=== PATIENT | male | born 1955 | race Caucasian/White ===

== ENCOUNTER 2020-06-12 04:09 | Emergency (ER) | payer OTHER ==
--- NOTE | 2020-06-12 04:30 | EDM.PDOC ---
ED HPI GENERAL MEDICAL PROBLEM - General Chief Complaint: Chest Pain Stated Complaint: [facility] Time Seen by Provider: 06/12/20 04:15 Source of Information: Reports: Patient History Limitations: Reports: No Limitations - History of Present Illness INITIAL COMMENTS - FREE TEXT/NARRATIVE: This is a 65-year-old male. He apparently was in bed and awoke and he felt like he was having palpitations and tightness in his chest. He did not have any sweating there was no shortness of breath there was no pain or pressure into his neck jaw or down his arm. He got up to go to the bathroom and felt lightheaded but did not pass out. He let himself down on the floor gently and then he called 911. When the ambulance arrived to pick them up the palpitations stopped even though he tells me he still feels like he is got some palpitations now with a heart rate of 73. He has not been around anyone with Covid he is not really been experiencing any Covid symptoms. He did drink a glass of water that tasted really better around 730. He has had some nausea though he has not vomited during this episode of palpitations and chest tightness. The ambulance he got 3 nitroglycerin and 324 aspirin. He did take an ibuprofen at 11 PM and at 2 AM because of his low back aching. He does have a herniated disc in his L4 low back. He denies cough congestion fever chills. He is not having any particular symptoms presently. 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: Reports: Aspirin, Intubation, Nitroglycerin - Related Data Allergies Allergy/AdvReac Type Severity Reaction Status Date / Time Sulfa (Sulfonamide Allergy Rash Verified 05/06/20 10:14 Antibiotics) Home Meds: Home Meds Azithromycin 250 mg PO QAM #6 tablet 06/12/20 [Rx] Past Medical History Cardiovascular History: Reports: High Cholesterol, Hypertension Social & Family History - Tobacco Use Tobacco Use Status *Q: Former Tobacco User Used Tobacco, but Quit: Yes Month/Year Tobacco Last Used: 1999 - Alcohol Use Days Per Week of Alcohol Use: 1 Number of Drinks Per Day: 1 Total Drinks Per Week: 1 - Recreational Drug Use Recreational Drug Use: No ED ROS GENERAL - Review of Systems Review Of Systems: See Below Constitutional: Denies: Fever, Chills, Weakness HEENT: Denies: Sinus Problem, Throat Pain Respiratory: Denies: Shortness of Breath, Cough Cardiovascular: Reports: Chest Pain, Palpitations Endocrine: Reports: No Symptoms GI/Abdominal: Reports: No Symptoms, Nausea. Denies: Abdominal Pain, Diarrhea, Vomiting : Reports: No Symptoms Musculoskeletal: Reports: Back Pain Skin: Reports: No Symptoms Neurological: Reports: No Symptoms Psychiatric: Reports: No Symptoms Hematologic/Lymphatic: Reports: No Symptoms ED EXAM, GENERAL - Physical Exam Exam: See Below Exam Limited By: No Limitations General Appearance: Alert, WD/WN, No Apparent Distress Eye Exam: Bilateral Eye: Normal Inspection Ears: Normal External Exam, Normal Canal, Normal TMs Nose: Normal Inspection Throat/Mouth: Normal Inspection, Normal Lips, Normal Oropharynx, Normal Voice, No Airway Compromise, Other (Tacky mucous membranes) Head: Normocephalic Neck: Supple Respiratory/Chest: No Respiratory Distress, Lungs Clear, Normal Breath Sounds Cardiovascular: Regular Rate, Rhythm, No Murmur GI/Abdominal: Soft, Non-Tender Back Exam: Normal Inspection, Full Range of Motion Extremities: Normal Inspection, Normal Range of Motion, No Pedal Edema Neurological: Alert, Oriented Psychiatric: Normal Affect, Normal Mood Skin Exam: Warm, Dry #1 Interpretation EKG Date: 06/12/20 Time: 04:15 EKG Interpretation Comments: EKG shows a normal sinus rhythm with a rate of 81. He has no acute ST elevation or T wave changes. He has no ischemia noted. Course - Vital Signs Last Recorded V/S: Last Vital Signs Temp 97 F 06/12/20 04:13 Pulse 76 06/12/20 04:13 Resp 16 06/12/20 04:13 BP 142/92 H 06/12/20 04:13 Pulse Ox 98 06/12/20 04:13 - Orders/Labs/Meds Orders: Active Orders 24 hr Category Date Time Status EKG 12 Lead [EKG Documentation Completion] [RC] STAT Care 06/12/20 04:22 Active CXR [Chest 1V Frontal] [CR] Stat Exams 06/12/20 04:28 Taken Labs: Laboratory Tests 06/12/20 06/12/20 06/12/20 Range/Units 04:38 04:38 06:16 WBC 8.07 (4.23-9.07) K/mm3 RBC 5.02 (4.63-6.08) M/mm3 Hgb 14.3 (13.7-17.5) gm/dl Hct 41.6 (40.1-51.0) % MCV 82.9 (79.0-92.2) fl MCH 28.5 (25.7-32.2) pg MCHC 34.4 (32.2-35.5) g/dl RDW Std Deviation 41.4 (35.1-43.9) fL Plt Count 177 (163-337) K/mm3 MPV 9.5 (9.4-12.3) fl Neut % (Auto) 49.1 (34.0-67.9) % Lymph % (Auto) 39.2 (21.8-53.1) % [place] % (Auto) 9.5 (5.3-12.2) % Eos % (Auto) 2.0 (0.8-7.0) Baso % (Auto) 0.1 (0.1-1.2) % Neut # (Auto) 3.96 (1.78-5.38) K/mm3 Lymph # (Auto) 3.16 (1.32-3.57) K/mm3 [place] # (Auto) 0.77 (0.30-0.82) K/mm3 Eos # (Auto) 0.16 (0.04-0.54) K/mm3 Baso # (Auto) 0.01 (0.01-0.08) K/mm3 Sodium 136 (136-145) mEq/L Potassium 3.3 L (3.5-5.1) mEq/L Chloride 102 (98-107) mEq/L Carbon Dioxide 26 (21-32) mEq/L Anion Gap 11.3 (5-15) BUN 17 (7-18) mg/dL Creatinine 1.3 (0.7-1.3) mg/dL Est Cr Clr Drug Dosing 53.67 mL/min Estimated GFR (MDRD) 56 (>60) mL/min BUN/Creatinine Ratio 13.1 L (14-18) Glucose 127 H (80-115) mg/dL Calcium 8.8 (8.5-10.1) mg/dL Total Bilirubin 0.7 (0.2-1.0) mg/dL AST 21 (15-37) U/L ALT 21 (16-63) U/L Alkaline Phosphatase 104 (46-116) U/L Troponin I < 0.017 < 0.017 (0.00-0.056) ng/mL Total Protein 7.1 (6.4-8.2) g/dl Albumin 3.5 (3.4-5.0) g/dl Globulin 3.6 gm/dL Albumin/Globulin Ratio 1.0 (1-2) - Radiology Interpretation Free Text/Narrative:: Chest x-ray by the radiologist suggest he might have some interstitial edema or vascular congestion however it does appear to have maybe a early infiltrate in the right lower lobe. - Re-Assessments/Exams Free Text/Narrative Re-Assessment/Exam: 06/12/20 06:54 02 the patient regarding his lab results. Both of his troponins were negative. I think he might have an early pneumonia in the right lower base but from his symptomology and presentation it certainly could be mycoplasma I will place him on some antibiotics at this time. Departure - Departure Time of Disposition: 06:55 Disposition: Home, Self-Care 01 Condition: Good Clinical Impression: Palpitations, Pulmonary congestion Mycoplasma pneumonia Qualifiers: Laterality: right Lung location: lower lobe of lung Qualified Code(s): J15.7 - Pneumonia due to Mycoplasma pneumoniae Prescriptions: Azithromycin 250 mg PO QAM #6 tablet Instructions: Palpitations, Ofnu-he-Alna, Community-Acquired Pneumonia, Adult, [id number] Referrals: Yumiko Spencer MD [Primary Care Provider] - Forms: ED Department Discharge, ED Return to Work/School Form Additional Instructions: Continue with light activity, start your antibiotics today if you can, drink lots of fluids, follow-up with your family doctor later this week for recheck and return to the ER if needed Sepsis Event Note (ED) - Evaluation Sepsis Screening Result: No Definite Risk - Focused Exam Vital Signs: Vital Signs Temp Pulse Resp BP Pulse Ox 06/12/20 04:13 97 F 76 16 142/92 H 98 - My Orders Last 24 Hours: My Active Orders 06/12/20 04:22 EKG 12 Lead [EKG Documentation Completion] [RC] STAT 06/12/20 04:28 CXR [Chest 1V Frontal] [CR] Stat - Assessment/Plan Last 24 Hours: My Active Orders 06/12/20 04:22 EKG 12 Lead [EKG Documentation Completion] [RC] STAT 06/12/20 04:28 CXR [Chest 1V Frontal] [CR] Stat
--- NOTE | 2020-06-13 13:02 | CR ---
PROCEDURE INFORMATION: Exam: XR Chest, 1 View Exam date and time: 06/12/2020 4:25 AM Age: 65 years old Clinical indication: Type not specified; Patient HX: Chest pain and heart palpatations onset few hours prior TECHNIQUE: Imaging protocol: XR of the chest Views: 1 view. COMPARISON: No relevant prior studies available. FINDINGS: Lungs: The lungs are adequately inflated. Diffuse interstitial markings are mild and may represent is tissue edema. The central pulmonary vasculature is prominent. Pleural space: Unremarkable. No pleural effusion. No pneumothorax. Heart/Mediastinum: Cardiac silhouette size is normal. Bones/joints: No acute osseous abnormalities. IMPRESSION: Mild pulmonary interstitial edema and pulmonary vascular congestion. Thank you for allowing us to participate in the care of your patient. Dictated and Authenticated by: Fox Goodman MD 06/12/2020 6:23 AM Central Time ([place] & [place]) KAVIN
== END 2020-06-12 07:20 | disposition home or self-care (01) ==
LOC: JD.ED 04:09
DX: J15.7 Pneumonia due to Mycoplasma pneumoniae (principal); I10 Essential (primary) hypertension; Z88.2 Allergy status to sulfonamides; Z87.891 Personal history of nicotine dependence
CPT/HCPCS: 36415; 71045; 71045-26; 80053; 84484; 85025; 93005; 93010; 99283; 99285-25

== ENCOUNTER 2021-06-09 18:12 | Emergency (ER) | payer OTHER | END 2021-06-09 18:53 | LOC: JD.ED 18:12 | DX: R07.9 Chest pain, unspecified (principal); Z53.21 Procedure and treatment not carried out due to patient leaving prior to being seen by health care provider ==

== ENCOUNTER 2021-06-09 19:27 | Emergency (ER) | payer OTHER ==
--- NOTE | 2021-06-09 20:39 | EDM.PDOC ---
ED HPI GENERAL MEDICAL PROBLEM - General Chief Complaint: Chest Pain Stated Complaint: HIGH BLOOD PRESSURE Time Seen by Provider: 06/09/21 20:35 Source of Information: Reports: Patient History Limitations: Reports: No Limitations - History of Present Illness INITIAL COMMENTS - FREE TEXT/NARRATIVE: Patient is a 66-year-old male with a past medical history of HIV and hypertension presenting with chief complaint of chest pain. Patient reports HIV history has been stable for some time. His viral load is undetectable. Patient states the chest pain started this evening while walking the dog. Patient reports feeling some tightness and pressure in his substernal area on the left side. This was associated with some sweating and shortness of breath. Symptoms resolved when he got back to the house and rested. Patient states he did take 325 of aspirin and right now has minimal symptoms. Reports slight discomfort in the left side of his chest. Otherwise, patient denies any prior history of cardiovascular disease. He does report head neck cancer which she was dealing with last winter. Chest Pain Score (Numeric/FACES): 1 - Related Data Allergies Allergy/AdvReac Type Severity Reaction Status Date / Time Sulfa (Sulfonamide Allergy Rash Verified 06/09/21 20:00 Antibiotics) Home Meds: Home Meds Bictegrav/Emtricit/Tenofov Ala [Biktarvy 50-200-25 mg Tablet] 1 tab PO DAILY 06/09/21 [History] Escitalopram [Lexapro] 10 mg PO DAILY 06/09/21 [History] Past Medical History Cardiovascular History: Reports: High Cholesterol, Hypertension Immunologic History: Reports: HIV Social & Family History - Tobacco Use Tobacco Use Status *Q: Never Tobacco User Second Hand Smoke Exposure: No - Caffeine Use Caffeine Use: Reports: Coffee - Alcohol Use Days Per Week of Alcohol Use: 7 Number of Drinks Per Day: 1 Total Drinks Per Week: 7 - Recreational Drug Use Recreational Drug Use: Yes Recreational Drug Type: Reports: Marijuana/Hashish ED ROS GENERAL - Review of Systems Review Of Systems: See Below Free Text/Narrative/Comment: In addition to that documented in the HPI above, the additional ROS was obtained: Constitutional: Denies fevers or chills Eyes: Denies vision changes ENMT: Denies sore throat CV: Per HPI Resp: Per HPI GI: Denies vomiting or diarrhea : Denies painful urination MSK: Denies recent trauma Skin: Denies new rashes Neuro: Denies new numbness or tingling or weakness Endocrine: Denies unexpected weight loss Heme: Denies bleeding disorders ED EXAM, GENERAL - Physical Exam Exam: See Below Free Text/Narrative:: I have reviewed the triage vital signs Const: Well nourished, well developed, appears stated age Eyes: Pupils Equal and reactive to light bilaterally, no conjunctival injection HENT: No signs of trauma or swelling, Neck supple without meningismus CV: Regular Rate Rhythm, Warm, well-perfused extremities RESP: Unlabored respiratory effort GI: soft, non-tender, non-distended, no masses MSK: No gross deformities appreciated Skin: Warm, dry. 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 Sensation and motor function of extremities grossly intact. Psych: Appropriate mood and affect. #1 Interpretation EKG Date: 06/09/21 Time: 20:34 Rhythm: NSR Rate (Beats/Min): 55 [place]: Normal P-Wave: Present QRS: Normal ST-T: Elevated (Borderline ST elevation in lead III and aVF) QT: Normal Comparison: Change From Previous EKG EKG Interpretation Comments: Abnormal EKG #2 Interpretation EKG Date: 06/09/21 Time: 23:40 Rhythm: NSR Rate (Beats/Min): 62 [place]: Normal P-Wave: Present QRS: Normal ST-T: Elevated QT: Normal Comparison: Change From Previous EKG EKG Interpretation Comments: Slight improvement of ST elevation seen in lead III and aVF. Abnormal EKG. Course - Vital Signs Last Recorded V/S: Last Vital Signs Temp 36.2 C 06/09/21 19:59 Pulse 60 06/09/21 19:59 Resp 20 06/09/21 19:59 BP 177/94 H 06/09/21 19:59 Pulse Ox 99 06/09/21 19:59 - Orders/Labs/Meds Orders: Active Orders 24 hr Category Date Time Status Chest 1V Frontal [CR] Stat Exams 06/09/21 20:08 Taken CORONAVIRUS COVID-19 LUI [MOLEC] Stat Lab 06/10/21 00:39 Received Heparin Sodium/D5W [Heparin 25,000 Units in D5W 500 ML] Med 06/10/21 00:15 Active 25,000 units in 500 ml IV TITRATE Medication Orders Heparin Sodium/Dextrose (Heparin 25,000 Units In D5w 500 Ml) 25,000 units in 500 mls @ 17.962 mls/hr IV TITRATE KARTHIKEYAN; Protocol Last Admin: 06/10/21 00:36 Dose: 12 units/kg/hr, 17.962 mls/hr Documented by: ALEXANDER Cosigned by: DIANE Labs: Laboratory Tests 06/09/21 06/09/21 06/09/21 Range/Units 20:45 20:45 20:45 WBC 7.87 (4.23-9.07) K/mm3 RBC 5.01 (4.63-6.08) M/mm3 Hgb 14.6 (13.7-17.5) gm/dl Hct 44.0 (40.1-51.0) % MCV 87.8 D (79.0-92.2) fl MCH 29.1 (25.7-32.2) pg MCHC 33.2 (32.2-35.5) g/dl RDW Std Deviation 46.4 H (35.1-43.9) fL Plt Count 157 L (163-337) K/mm3 MPV 9.3 L (9.4-12.3) fl Neut % (Auto) 67.3 (34.0-67.9) % Lymph % (Auto) 20.1 L (21.8-53.1) % [place] % (Auto) 10.5 (5.3-12.2) % Eos % (Auto) 1.7 (0.8-7.0) Baso % (Auto) 0.1 (0.1-1.2) % Neut # (Auto) 5.30 (1.78-5.38) K/mm3 Lymph # (Auto) 1.58 (1.32-3.57) K/mm3 [place] # (Auto) 0.83 H (0.30-0.82) K/mm3 Eos # (Auto) 0.13 (0.04-0.54) K/mm3 Baso # (Auto) 0.01 (0.01-0.08) K/mm3 PT 10.3 (9.7-12.0) SECONDS INR 0.93 D-Dimer, Quantitative 0.27 (0.19-0.50) mg/L Sodium 140 (136-145) mEq/L Potassium 4.1 (3.5-5.1) mEq/L Chloride 102 (98-107) mEq/L Carbon Dioxide 30 (21-32) mEq/L Anion Gap 12.1 (5-15) BUN 25 H (7-18) mg/dL Creatinine 1.3 (0.7-1.3) mg/dL Est Cr Clr Drug Dosing 52.96 mL/min Estimated GFR (MDRD) 55 (>60) mL/min BUN/Creatinine Ratio 19.2 H (14-18) Glucose 122 H (70-99) mg/dL Calcium 9.2 (8.5-10.1) mg/dL Total Bilirubin 0.5 (0.2-1.0) mg/dL AST 23 (15-37) U/L ALT 30 (16-63) U/L Alkaline Phosphatase 114 (46-116) U/L Troponin I 0.029 (0.00-0.056) ng/mL Total Protein 7.6 (6.4-8.2) g/dl Albumin 4.0 (3.4-5.0) g/dl Globulin 3.6 gm/dL Albumin/Globulin Ratio 1.1 (1-2) 06/09/21 Range/Units 23:35 WBC (4.23-9.07) K/mm3 RBC (4.63-6.08) M/mm3 Hgb (13.7-17.5) gm/dl Hct (40.1-51.0) % MCV (79.0-92.2) fl MCH (25.7-32.2) pg MCHC (32.2-35.5) g/dl RDW Std Deviation (35.1-43.9) fL Plt Count (163-337) K/mm3 MPV (9.4-12.3) fl Neut % (Auto) (34.0-67.9) % Lymph % (Auto) (21.8-53.1) % [place] % (Auto) (5.3-12.2) % Eos % (Auto) (0.8-7.0) Baso % (Auto) (0.1-1.2) % Neut # (Auto) (1.78-5.38) K/mm3 Lymph # (Auto) (1.32-3.57) K/mm3 [place] # (Auto) (0.30-0.82) K/mm3 Eos # (Auto) (0.04-0.54) K/mm3 Baso # (Auto) (0.01-0.08) K/mm3 PT (9.7-12.0) SECONDS INR D-Dimer, Quantitative (0.19-0.50) mg/L Sodium (136-145) mEq/L Potassium (3.5-5.1) mEq/L Chloride (98-107) mEq/L Carbon Dioxide (21-32) mEq/L Anion Gap (5-15) BUN (7-18) mg/dL Creatinine (0.7-1.3) mg/dL Est Cr Clr Drug Dosing mL/min Estimated GFR (MDRD) (>60) mL/min BUN/Creatinine Ratio (14-18) Glucose (70-99) mg/dL Calcium (8.5-10.1) mg/dL Total Bilirubin (0.2-1.0) mg/dL AST (15-37) U/L ALT (16-63) U/L Alkaline Phosphatase (46-116) U/L Troponin I 0.476 H* (0.00-0.056) ng/mL Total Protein (6.4-8.2) g/dl Albumin (3.4-5.0) g/dl Globulin gm/dL Albumin/Globulin Ratio (1-2) Meds: Medications Generic Name Dose Route Start Last Admin Trade Name Freq PRN Reason Stop Dose Admin Heparin Sodium/Dextrose 25,000 units in 500 mls @ 17.962 mls/hr 06/10/21 00:15 06/10/21 00:36 Heparin 25,000 Units In D5w 500 Ml IV 12 units/kg/hr TITRATE KARTHIKEYAN 17.962 mls/hr Administration Protocol 12 UNITS/KG/HR Discontinued Medications Generic Name Dose Route Start Last Admin Trade Name Freq PRN Reason Stop Dose Admin Heparin Sodium (Porcine) 4,400 units 06/10/21 00:14 06/10/21 00:37 Heparin Sodium 5,000 Units/Ml Vial IVPUSH 06/10/21 00:15 4,000 units .BOLUS ONE Administration - Re-Assessments/Exams Free Text/Narrative Re-Assessment/Exam: 11/12/21 22:14 On repeat evaluation, patient asymptomatic. He was informed of EKG testing and laboratory results. 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 Patient denies any use tonight. Denies any other drug use. Was informed of plan of care with repeat EKG and troponin testing. Departure - Departure Time of Disposition: 00:45 Disposition: DC/[facility] to [facility] Reason for Transfer *Q: Other Clinical Impression: NSTEMI (non-ST elevated myocardial infarction) Referrals: Yumiko Spencer MD [Primary Care Provider] - Forms: ED Department Discharge Critical Care Note - Critical Care Note Total Time (mins): 35 Comments: Critical Care Procedure Note Total critical care time: Approximately 35 minutes Due to a high probability of clinically significant, life threatening deterioration, the patient required my highest level of preparedness to intervene emergently and I personally spent this critical care time directly and personally managing the patient. This critical care time included obtaining a history; examining the patient; pulse oximetry; ordering and review of studies; arranging urgent treatment with development of a management plan; evaluation of patient's response to treatment; frequent reassessment; and, discussions with other providers. This critical care time was performed to assess and manage the high probability of imminent, life-threatening deterioration that could result in multi-organ failure. It was exclusive of separately billable procedures and treating other patients and teaching time. Sepsis Event Note (ED) - Focused Exam Vital Signs: Vital Signs Temp Pulse Resp BP Pulse Ox 06/09/21 19:59 36.2 C 60 20 177/94 H 99 - My Orders Last 24 Hours: My Active Orders 06/09/21 20:08 Chest 1V Frontal [CR] Stat 06/10/21 00:15 Heparin Sodium/D5W [Heparin 25,000 Units in D5W 500 ML] 25,000 units in 500 ml IV TITRATE 06/10/21 00:39 CORONAVIRUS COVID-19 LUI [MOLEC] Stat - Assessment/Plan Last 24 Hours: My Active Orders 06/09/21 20:08 Chest 1V Frontal [CR] Stat 06/10/21 00:15 Heparin Sodium/D5W [Heparin 25,000 Units in D5W 500 ML] 25,000 units in 500 ml IV TITRATE 06/10/21 00:39 CORONAVIRUS COVID-19 LUI [MOLEC] Stat Assessment:: Patient is a 66-year-old male presenting to the emergency room with a complaint of chest pain. Patient had unremarkable ER course. Chest pain completely resolved while in the emergency room. EKG demonstrates concerning signs for ischemia with slight elevation of ST segments in the inferior leads. No evidence of STEMI criteria. Initial troponin came back within normal limits. However, on repeat troponin testing elevation of troponin to 0.48. Patient remained hemodynamically stable while in the emergency room. Alternative diagnosis considered for this patient include pulmonary embolism and aortic dissection. D-dimer negative making these diagnoses less likely especially with patient's symptoms. With these findings, diagnosis of NSTEMI patient will require cardiology evaluation and therefore higher level of care. Case was discussed with Dr. Matos of [facility] in [place]. She agreed accept patient. Patient will be transported via ground ambulance. Heparin was initiated prior to transfer.
[2021-06-10] MEDS ORDERED: Heparin Sodium 5,000 Units/ML Vial IVPUSH ONE (00:14)
[2021-06-10] MEDS ORDERED: Heparin Sodium/D5W 25,000 UNITS/500 ML BAG IV SCH (00:15)
--- NOTE | 2021-06-10 12:27 | CR ---
Chest: Portable view of the chest was obtained. Comparison: No prior chest imaging is available. Heart size and mediastinum are normal. Lungs are clear with no acute parenchymal change. No acute osseous abnormality is appreciated. Surgical clips are seen at the base of the left neck. Impression: 1. Incidental finding. Nothing acute is seen on portable chest x-ray. Diagnostic code #2
== END 2021-06-10 01:50 ==
LOC: JD.ED 19:27
DX: I21.4 Non-ST elevation (NSTEMI) myocardial infarction (principal); I10 Essential (primary) hypertension; R94.31 Abnormal electrocardiogram [ECG] [EKG]; Z88.2 Allergy status to sulfonamides; Z20.822 Contact with and (suspected) exposure to COVID-19
CPT/HCPCS: 36415; 71045; 80053; 84484; 85025; 85379; 85610; 87635; 93005; 96365; 99285; J1644; 93010; 99291; U0002

== ENCOUNTER 2023-11-14 14:28 | Emergency (ER) | payer OTHER ==
[2023-11-14 15:50] LABS: APPEARANCE,URINE CLEAR (Clear); BILIRUBIN,URINE NEGATIVE (Negative); COLOR,URINE YELLOW (Yellow); GLUCOSE,URINE NEGATIVE (Negative); KETONES,URINE NEGATIVE (Negative); LEUKOCYTE ESTERASE,URINE NEGATIVE (Negative); NITRITE,URINE NEGATIVE (Negative); OCCULT BLOOD,URINE TRACE-INTACT (Negative); PH,URINE 6.5 (5.0-8.0); PROTEIN,URINE NEGATIVE (Negative); UROBILINOGEN,URINE 0.2 (0.2-1.0)
[2023-11-14] MEDS: hydrALAZINE 20 MG/ML SDV IVPUSH PRN (15:54)
[2023-11-14 16:00] LABS: ALANINE AMINOTRANSFERASE,ALT 31 U/L (16-63); ALBUMIN 3.8 g/dl (3.4-5.0); ALKALINE PHOSPHATASE 129 U/L (46-116); ANION GAP 12.7 (5-15); BILIRUBIN TOTAL 1.3 mg/dL (0.2-1.0); BLOOD UREA NITROGEN,BUN 17 mg/dL (7-18); BUN/CREATININE RATIO 14.2 (14-18); CALCIUM 9.1 mg/dL (8.5-10.1); CARBON DIOXIDE,CO2 28 mEq/L (21-32); CHLORIDE,CL 102 mEq/L (98-107); CREATININE 1.2 mg/dL (0.7-1.3); EST CRCL DRUG DOSING (CG) 55.85 mL/min; ESTIMATED GFR 66 mL/min (>60); SODIUM,NA 138 mEq/L (136-145)
[2023-11-14 16:02] LABS: GLUCOSE RANDOM 187 mg/dL (70-99); POTASSIUM,K 4.7 mEq/L (3.5-5.1); TROPONIN I HIGH SENSITIVITY < 4 pg/mL (<=76)
[2023-11-14 16:11] LABS: BASOPHILS PERCENT AUTO 0.5 % (0.0-1.0); EOSINOPHILS ABSOLUTE AUTO 0.2 K/mm3 (0.0-0.4); EOSINOPHILS PERCENT AUTO 3.3 % (0.0-6.0); HEMATOCRIT 45.3 % (42.0-52.0); HEMOGLOBIN 15.5 gm/dl (14.0-18.0); IMMATURE GRAN ABSOLUTE AUTO 0.02 K/mm3 (0.00-0.05); IMMATURE GRAN PERCENT AUTO 0.3 % (0.0-0.4); LYMPHOCYTES ABSOLUTE AUTO 1.9 K/mm3 (1.0-4.8); LYMPHOCYTES PERCENT AUTO 30.8 % (24.0-44.0); MEAN CORPUSCULAR HEMOGLOBIN 28.8 pg (28.0-32.0); MEAN CORPUSCULAR HGB CONC 34.2 g/dl (32.0-36.0); MEAN PLATELET VOLUME 11.5 fl (9.4-12.4); MONOCYTES ABSOLUTE AUTO 0.5 K/mm3 (0.0-0.8); MONOCYTES PERCENT AUTO 8.6 % (0.0-8.0); NEUTROPHILS ABSOLUTE AUTO 3.5 K/mm3 (1.8-7.7); NEUTROPHILS PERCENT AUTO 56.5 % (41.0-71.0); PLATELET COUNT,PLT 118 K/mm3 (150-400); RED BLOOD CELL COUNT 5.39 M/mm3 (4.52-5.90); WHITE BLOOD CELL COUNT,WBC 6.13 K/mm3 (3.9-11.3)
[2023-11-14 16:13] LABS: PROTEIN TOTAL,TP 7.9 g/dl (6.4-8.2)
[2023-11-14 16:14] LABS: A/G RATIO 0.9 (1-2)
[2023-11-14 16:24] LABS: RBC,URINE 0-5 /hpf (0-5); WBC,URINE 0-5 /hpf (0-5)
[2023-11-14 16:25] LABS: BACTERIA,URINE OCCASIONAL /hpf (FEW); MUCUS,URINE FEW /hpf (FEW); SQUAMOUS EPITHELIAL CELLS,UR NOT SEEN /hpf (0-5)
[2023-11-14 16:27] LABS: BARBITURATE SCREEN,URINE NEGATIVE (CUTOFF=200); BENZODIAZEPINES SCREEN,URINE NEGATIVE (CUTOFF=150); BUPRENORPHINE SCREEN,URINE NEGATIVE (CUTOFF=10); METHADONE SCREEN, URINE NEGATIVE (CUT0FF=200); METHAMPHETAMINES SCREEN, URINE NEGATIVE (CUTOFF=500); OXYCODONE SCREEN,URINE NEGATIVE (CUT0FF=100); THC SCREEN,URINE 20 NG/ML NEGATIVE (CUTOFF=50)
[2023-11-14 16:28] LABS: AMPHETAMINES SCREEN, URINE NEGATIVE (CUTOFF=500)
[2023-11-14] MEDS: Metoprolol Tartrate 25 MG Tab PO ONE ×2 (16:46)
== END 2023-11-14 18:00 | disposition home or self-care (01) ==
LOC: JD.ED 14:28
DX: I10 Essential (primary) hypertension (principal); Z88.2 Allergy status to sulfonamides; Z79.899 Other long term (current) drug therapy; Z21 Asymptomatic human immunodeficiency virus [HIV] infection status
CPT/HCPCS: 36415; 70450; 71046; 80053; 80306; 81001; 84484; 85025; 93005; 96374; 99284; A9270; J0360; 93010

== ENCOUNTER 2024-01-24 20:35 | Emergency (ER) | payer OTHER ==
[2024-01-24 20:52] LABS: BASOPHILS PERCENT AUTO 0.3 % (0.0-1.0); EOSINOPHILS ABSOLUTE AUTO 0.2 K/mm3 (0.0-0.4); EOSINOPHILS PERCENT AUTO 2.1 % (0.0-6.0); HEMATOCRIT 44.1 % (42.0-52.0); HEMOGLOBIN 14.7 gm/dl (14.0-18.0); IMMATURE GRAN ABSOLUTE AUTO 0.02 K/mm3 (0.00-0.05); IMMATURE GRAN PERCENT AUTO 0.3 % (0.0-0.4); LYMPHOCYTES ABSOLUTE AUTO 1.7 K/mm3 (1.0-4.8); LYMPHOCYTES PERCENT AUTO 22.9 % (24.0-44.0); MEAN CORPUSCULAR HEMOGLOBIN 28.2 pg (28.0-32.0); MEAN CORPUSCULAR HGB CONC 33.3 g/dl (32.0-36.0); MEAN CORPUSCULAR VOLUME 84.5 fl (83.0-99.0); MEAN PLATELET VOLUME 9.4 fl (9.4-12.4); MONOCYTES ABSOLUTE AUTO 0.7 K/mm3 (0.0-0.8); MONOCYTES PERCENT AUTO 9.4 % (0.0-8.0); NEUTROPHILS ABSOLUTE AUTO 4.7 K/mm3 (1.8-7.7); PLATELET COUNT,PLT 200 K/mm3 (150-400); RED BLOOD CELL COUNT 5.22 M/mm3 (4.52-5.90)
[2024-01-24 21:16] LABS: ALANINE AMINOTRANSFERASE,ALT 26 U/L (16-63); ALBUMIN 3.9 g/dl (3.4-5.0); ALKALINE PHOSPHATASE 131 U/L (46-116); ASPARTATE AMNIOTRANSFERASE,AST 20 U/L (15-37); BILIRUBIN TOTAL 1.1 mg/dL (0.2-1.0); BLOOD UREA NITROGEN,BUN 14 mg/dL (7-18); BUN/CREATININE RATIO 10.8 (14-18); CALCIUM 9.4 mg/dL (8.5-10.1); CARBON DIOXIDE,CO2 28 mEq/L (21-32); CHLORIDE,CL 100 mEq/L (98-107); CREATININE 1.3 mg/dL (0.7-1.3); ESTIMATED GFR 60 mL/min (>60); GLUCOSE RANDOM 112 mg/dL (70-99); PROTEIN TOTAL,TP 7.9 g/dl (6.4-8.2); SODIUM,NA 135 mEq/L (136-145); TROPONIN I HIGH SENSITIVITY 5 pg/mL (<=76)
[2024-01-24] MEDS: Acetaminophen 325 MG Tab PO ONE (21:27)
[2024-01-24] MEDS: Sodium Chloride 0.9% 500 ML IV ONE (21:27)
== END 2024-01-24 23:45 | disposition home or self-care (01) ==
LOC: JD.ED 20:35
DX: R07.89 Other chest pain (principal); I10 Essential (primary) hypertension; Z88.2 Allergy status to sulfonamides
CPT/HCPCS: 36415; 71045; 80053; 84484; 85025; 93005; 99285; A9270; J7030; 93010; 99283